=== PATIENT | female | born 1950 | race Caucasian/White ===

== ENCOUNTER 2017-02-06 07:25 | Day surgery (SDC) | payer MEDICARE, OTHER ==
[~2017-02-06] VITALS: Ht 175.3 cm; Wt 81.7 kg
[~2017-02-06 07:25] MED LIST: ASPI-973 PO; BUPR150T9 PO; CHOL10008 PO; DICY10CA13 PO; FLAX100038 PO; GLUC-226 PO; HYDR25TA4 PO; LEVO125T6 PO; MAGN500C4 PO; MELO7.5O PO; METO25TA6 PO; NITR100C PO; PHEN-777 PO; Sodium Chloride LOK Flush 10 mL Syringe IV PRN; VALS320T12 PO; VIT1TABL83 PO; fentaNYL-PF 50 mCg/mL 2 mL Inj IVPUSH PRN
[2017-02-06 07:49] VITALS: BP 124/73; PULSE 65; RESP 16; O2SAT 96
[2017-02-06] MEDS ORDERED: 0.9% Sodium Chloride 1,000 ML IV ONE (07:58)
--- NOTE | 2017-02-06 09:01 | PCM.ENDCOL ---
Colonoscopy Date of Service: Feb 06, 2017 Physician Lalito Reece MD Pre Procedure Diagnosis: Diarrhea and personal history of colon polyp Post Procedure Dx & Findings: Hemorrhoids Procedure Colonoscopy PROCEDURE IN DETAIL: Prep adequate Withdrawal time 13 minutes After unremarkable rectal examination the Olympus video colonoscope was inserted patient's anal canal and was advanced to cecum. Landmarks were identified including the ileocecal valve and appendiceal orifice. Scope advanced to terminal ileum. Advanced 10 cm. Visualized terminal ileum show normal healthy villous structures without any ulcer or mass erosion. Scope was withdrawn systematically. Visualized colonic mucosa showed healthy shiny mucosa with normal healthy-appearing vasculature. Random biopsies are taken from the cecum to the rectum. In the rectum retroflexion was done which showed hemorrhoids. Anal canal was inspected carefully on the way out and hemorrhoids noted. Impression Normal TI Random biopsies of the colon Hemorrhoids Recommendation Repeat colonoscopy 5 years due to personal history of colon polyp Presedation Assessment Risks and Benefits Informed consent was obtained from the patient after all risks and benefits including but not limited to drug reaction, infection, pain, bleeding, perforation, as well as alternatives were discussed. Patient monitoring Continuous pulse oximetry, cardiac monitoring, blood pressure monitoring, IV access, and oxygen at 2L per nasal cannula. Periprocedural Fentanyl: Fentanyl 100mcg Incrementally Midazolam: Midazolam 5mg Incrementally Complications There were no periprocedural complications identified. Post Procedure Plan Post Procedure Recommendations 1. Restrict activities today. 2. Resume normal activities in the morning. 3. Resume medications. 4. Patient informed of normal post procedure side effects as bloating, drowsiness, blood streaking in the stool. 5. average risk CRCS. If colon polyps come back as: -Hyperplastic- can repeat colonoscopy in 10 years -Tubular adenoma- repeat colonoscopy in 5 years -Tubulovillous/villous adenoma- repeat colonoscopy in 3 years -If any dysplasia- return to clinic as soon as possible 6. Please don't hesitate to call me with any questions. Lalito Reece MD Feb 06, 2017 09:01
[2017-02-06 09:02] VITALS: BP 113/62; PULSE 62; RESP 16; O2SAT 96
[2017-02-06 09:12] VITALS: BP 107/58; PULSE 61; RESP 16; O2SAT 95
[2017-02-06 09:22] VITALS: BP 112/59; PULSE 66; RESP 16; O2SAT 95
--- NOTE | 2017-02-09 07:18 | PATH ---
SURGICAL PATHOLOGY Attending Physician:Lalito Reece M.D. CASE STATUS: Signed Out PATIENT NAME: TIFFANIE ROACH PID: [id number] : 1950 DATE COLLECTED:02/06/2017 15:31 SPECIMEN: Colon, Biopsy CLINICAL HISTORY: 1. RANDOM COLON FINAL DIAGNOSIS: 1.RANDOM COLON BIOPSIES: INCREASED INTRAMUCOSAL LYMPHOCYTES, CONSISTENT WITH LYMPHOCYTIC COLITIS. TRICHROME STAIN POSITIVE FOR FOCAL INCREASED FIBROSIS OF THE SUBEPITHELIAL BASEMENT MEMBRANE, CONSISTENT WITH EARLY COLLAGENOUS COLITIS. No evidence of dysplasia or malignancy. ICD10 K52.89 GROSS DESCRIPTION: Received in formalin, labeled with the patient' s name and "random colon", are multiple fragments of poon, soft tissue ranging in size from 0.1 x 0.1 x 0.1 cm to 0.2 x 0.1 x 0.1 cm. All fragments are totally submitted in cassette 1A. ([id number]) MICRO DESCRIPTION: See diagnosis. ICD-9 CODES: CPT CODES: 1: 86300, 35324 Electronically Signed Out Renato Poe MD [facility] [address], [place] [address] Technical component performed at [facility], [facility] [address], [place], [address]
== END 2017-02-06 23:59 | disposition home or self-care (01) ==
LOC: END 07:25
PROVIDERS: ATTEND Internal Medicine
DX: R19.7 Diarrhea, unspecified (principal); K52.832 Lymphocytic colitis; K52.831 Collagenous colitis; K64.8 Other hemorrhoids; Z86.010 Personal history of colon polyps; E03.9 Hypothyroidism, unspecified; E78.00 Pure hypercholesterolemia, unspecified; J44.9 Chronic obstructive pulmonary disease, unspecified; F32.9 Major depressive disorder, single episode, unspecified; I44.7 Left bundle-branch block, unspecified; Z79.82 Long term (current) use of aspirin
CPT/HCPCS: 45380; 99153; G0500; J7030